=== PATIENT | female | born 1995 | race Caucasian/White ===

== ENCOUNTER 2017-11-22 19:11 | Emergency (ER) | payer OTHER ==
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
[2017-11-22 21:56] VITALS: BP 131/74
== END 2017-11-22 21:52 | disposition home or self-care (01) ==
LOC: ER 19:11
DX: S16.1XXA Strain of muscle, fascia and tendon at neck level, initial encounter (principal); R51 Headache; V43.52XA Car driver injured in collision with other type car in traffic accident, initial encounter
CPT/HCPCS: 99283

== ENCOUNTER 2018-01-15 18:54 | Emergency (ER) | payer OTHER ==
[2018-01-15] MEDS ORDERED: PENICILLIN G BENZATHINE 1.2 MILLION UNIT/2 ML DISP.SYRIN IM ONE (19:29)
[2018-01-15] MEDS ORDERED: IBUPROFEN 800 MG TABLET PO ONE (19:29)
--- NOTE | 2018-01-15 19:33 | ER Document Report ---
HPI - HPI Patient complains to provider of: Sore throat Pain Level: 2 Context: Patient is a 22-year-old female presents emergency room with a chief complaint of sore throat started yesterday. She states that she woke up this morning and noted white pustules on her tonsils denies any cough.. She is to admits to worse pain. She notes a low-grade fever yesterday. Otherwise healthy female with no allergies. Past Medical History - Social History Smoking Status: Never Smoker Family History: Reviewed & Not Pertinent Renal/ Medical History: Denies: Hx Peritoneal Dialysis Vertical Provider Document - CONSTITUTIONAL Agree With Documented VS: Yes Notes: PHYSICAL EXAM GENERAL: Alert, interacts well. HEENT: NCAT, pale conjunctiva, extraocular movements intact, pupils PERRL. external ear normal, no evidence of external auditory canal tenderness, blood/ drainage, cerumen impaction, TM intact without evidence of effusion, bulging, injection, MMM, Uvula midline. Airway patent. No evidence of tonsillar enlargement, peritonsillar abscess, retropharyngeal abscess. Evidence of tonsillar erythema with tonsillar exudates. Anterior lymphadenopathy LUNGS: Clear to auscultation bilaterally, no wheezes, rales, or rhonchi. No respiratory distress. HEART: Regular rate and rhythm. No murmurs, gallops, or rubs. NEUROLOGICAL: Alert and oriented x4. Normal speech. PSYCH: Normal affect, normal mood. SKIN: Warm, dry, normal turgor. No rashes or lesions noted. - INFECTION CONTROL TRAVEL OUTSIDE OF THE [place] IN LAST 30 DAYS: No - RESPIRATORY O2 Sat by Pulse Oximetry: 99 Course - Re-evaluation Re-evalutation: 01/15/18 19:30 Patient is a 22-year-old female is hemodynamically stable, no acute distress afebrile presentation of several days of sore throat in an otherwise well- appearing patient. Presentation is consistent with strep pharyngitis without headache, neck pain, body aches concerning for [facility]. History and exam are not consistent with a retropharyngeal abscess or peritonsillar abscess. Airway is patent. No difficulty handling oral secretions. Vitals within normal limits. Patient has been treated with an IM dose of penicillin. At this time will discharge with return precautions and follow-up recommendations. Verbal discharge instructions given a the bedside and opportunity for questions given. Medication warnings reviewed. Patient is in agreement with this plan and has verbalized understanding of return precautions and the need for primary care follow-up in the next week - Vital Signs Vital signs: Temp Pulse Resp BP Pulse Ox 99.0 F 91 19 114/61 99 01/15/18 19:19 01/15/18 19:19 01/15/18 19:19 01/15/18 19:19 01/15/18 19:19 Discharge - Discharge Clinical Impression: Strep pharyngitis Condition: Good Disposition: HOME, SELF-CARE Instructions: Strep Throat (OM)
[2018-01-15 21:51] VITALS: BP 122/67
== END 2018-01-15 21:51 | disposition home or self-care (01) ==
LOC: ER 18:54
DX: J02.0 Streptococcal pharyngitis (principal)
CPT/HCPCS: 99282; 96372; J0561